=== PATIENT | female | born 1980 | race Caucasian/White ===

== ENCOUNTER 2022-02-16 08:59 | Emergency (ER) | payer OTHER ==
[2022-02-16] MEDS ORDERED: SODIUM CHLORIDE 0.9% 500 ML 500 ML IV STA (09:22)
[2022-02-16] MEDS ORDERED: SODIUM CHLORIDE 0.9% 1,000 ML IV STA (09:22)
[2022-02-16] MEDS ORDERED: ONDANSETRON 4 MG/2 ML VIAL IVP STA (09:22)
[2022-02-16] MEDS ORDERED: HYDROmorphone 0.5 MG/0.5 ML SYRINGE IVP STA ×2 (09:22→13:46)
--- NOTE | 2022-02-16 09:31 | ED ---
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 She states the abdominal pain started on 02/14/22, and has been constant ever since with occasional sharp pains. She rates the pain 01/25 and has been taking Tylenol 3s and using a heating blanket with no relief. She does admit to one episode of vomiting on Tuesday and constant diarrhea. Denies melena, dysuria, fevers, chills, or nightsweats. She under went a cholecystectomy years ago and takes Lasix as needed for leg swelling. Location: [facility] - Related Data Home Medications Medication Instructions Recorded Confirmed Indapamide 2.5 mg PO DAILY 02/16/22 02/16/22 Previous Rx's Medication Instructions Recorded HYDROcodone/APAP 5-325MG [[place]fe 5] 1 each PO Q6HR PRN #12 tab 02/16/22 Allergies Allergy/AdvReac Type Severity Reaction Status Date / Time No Known Allergies Allergy Verified 02/16/22 10:51 Review of Systems ROS Statement: Those systems with pertinent positive or pertinent negative responses have been documented in the HPI. ROS Other: All systems not noted in ROS Statement are negative. Past Medical History Past Medical History: No Reported History History of Any Multi-Drug Resistant Organisms: None Reported Past Surgical History: Cholecystectomy Additional Past Surgical History / Comment(s): Breat reduction. Past Psychological History: No Psychological Hx Reported Smoking Status: Never smoker Past Alcohol Use History: Occasional Past Drug Use History: None Reported General Exam Limitations: no limitations General appearance: alert, in no apparent distress Head exam: Present: atraumatic, normocephalic, normal inspection Eye exam: Present: normal appearance, PERRL, EOMI. Absent: scleral icterus, conjunctival injection, periorbital swelling ENT exam: Present: normal exam, mucous membranes moist Neck exam: Present: normal inspection. Absent: tenderness, meningismus, lymphadenopathy Respiratory exam: Present: normal lung sounds bilaterally. Absent: respiratory distress, wheezes, rales, rhonchi, stridor Cardiovascular Exam: Present: regular rate, normal rhythm, normal heart sounds. Absent: systolic murmur, diastolic murmur, rubs, gallop, clicks GI/Abdominal exam: Present: soft, tenderness (RLQ/RUQ/LUQ tenderness to palpitation), normal bowel sounds Extremities exam: Present: normal inspection, full ROM, normal capillary refill. Absent: tenderness, pedal edema, joint swelling, calf tenderness Back exam: Present: normal inspection Neurological exam: Present: alert, oriented X3, CN II-XII intact Psychiatric exam: Present: normal affect, normal mood Skin exam: Present: warm, dry, intact, normal color. Absent: rash Course Vital Signs 02/16/22 02/16/22 02/16/22 09:03 10:02 12:03 Temperature 98.1 F Pulse Rate 90 103 H Respiratory 20 18 18 Rate Blood Pressure 136/89 133/79 O2 Sat by Pulse 99 100 Oximetry 02/16/22 13:48 Temperature Pulse Rate 96 Respiratory 18 Rate Blood Pressure 138/101 O2 Sat by Pulse 100 Oximetry Medical Decision Making - Medical Decision Making 41 present for right-sided abdominal pain. Patient has abnormal CT showing right ovarian findings. Ultrasound was obtained shows irregular tissue on the right ovary concerning for brain cancer I did contact on-call SENIOR BUSINESS INTELLIGENCE ANALYST as patient does not have current SENIOR BUSINESS INTELLIGENCE ANALYST. Patient's will follow-up within 1 week patient provided pain control and return parameters were discussed. - Lab Data Result diagrams: 02/16/22 10:12 02/16/22 10:12 Lab Results 02/16/22 02/16/22 02/16/22 Range/Units 10:12 10:12 10:12 WBC 10.4 (3.8-10.6) k/uL RBC 4.58 (3.80-5.40) m/uL Hgb 13.8 (11.4-16.0) gm/dL Hct 41.1 (34.0-46.0) % MCV 89.7 (80.0-100.0) fL MCH 30.0 (25.0-35.0) pg MCHC 33.5 (31.0-37.0) g/dL RDW 13.8 (11.5-15.5) % Plt Count 319 (150-450) k/uL MPV 8.8 Neutrophils % 70 % Lymphocytes % 21 % Monocytes % 5 % Eosinophils % 2 % Basophils % 1 % Neutrophils # 7.3 (1.3-7.7) k/uL Lymphocytes # 2.2 (1.0-4.8) k/uL Monocytes # 0.5 (0-1.0) k/uL Eosinophils # 0.2 (0-0.7) k/uL Basophils # 0.1 (0-0.2) k/uL Sodium (137-145) mmol/L Potassium (3.5-5.1) mmol/L Chloride (98-107) mmol/L Carbon Dioxide (22-30) mmol/L Anion Gap mmol/L BUN (7-17) mg/dL Creatinine (0.52-1.04) mg/dL Est GFR (CKD-EPI)AfAm (>60 ml/min/1.73 sqM) Est GFR (CKD-EPI)NonAf (>60 ml/min/1.73 sqM) Glucose (74-99) mg/dL Plasma Lactic Acid Blake (0.7-2.0) mmol/L Calcium (8.4-10.2) mg/dL Total Bilirubin (0.2-1.3) mg/dL AST (14-36) U/L ALT (4-34) U/L Alkaline Phosphatase (38-126) U/L Total Protein (6.3-8.2) g/dL Albumin (3.5-5.0) g/dL Lipase (23-300) U/L Urine Color Yellow Urine Appearance Cloudy H (Clear) Urine pH 7.0 (5.0-8.0) Ur Specific [place] 1.023 (1.001-1.035) Urine Protein Trace H (Negative) Urine Glucose (UA) Negative (Negative) Urine Ketones Negative (Negative) Urine Blood Negative (Negative) Urine Nitrite Negative (Negative) Urine Bilirubin Negative (Negative) Urine Urobilinogen <2.0 (<2.0) mg/dL Ur Leukocyte Esterase Negative (Negative) Urine WBC 2 (0-5) /hpf Ur Squamous Epith Cells 14 H (0-4) /hpf Urine Bacteria Rare H (None) /hpf Urine Mucus Rare H (None) /hpf Urine HCG, Qual Not Detected (Not Detectd) 02/16/22 02/16/22 Range/Units 10:12 10:12 WBC (3.8-10.6) k/uL RBC (3.80-5.40) m/uL Hgb (11.4-16.0) gm/dL Hct (34.0-46.0) % MCV (80.0-100.0) fL MCH (25.0-35.0) pg MCHC (31.0-37.0) g/dL RDW (11.5-15.5) % Plt Count (150-450) k/uL MPV Neutrophils % % Lymphocytes % % Monocytes % % Eosinophils % % Basophils % % Neutrophils # (1.3-7.7) k/uL Lymphocytes # (1.0-4.8) k/uL Monocytes # (0-1.0) k/uL Eosinophils # (0-0.7) k/uL Basophils # (0-0.2) k/uL Sodium 137 (137-145) mmol/L Potassium 4.5 (3.5-5.1) mmol/L Chloride 105 (98-107) mmol/L Carbon Dioxide 25 (22-30) mmol/L Anion Gap 7 mmol/L BUN 12 (7-17) mg/dL Creatinine 0.69 (0.52-1.04) mg/dL Est GFR (CKD-EPI)AfAm >90 (>60 ml/min/1.73 sqM) Est GFR (CKD-EPI)NonAf >90 (>60 ml/min/1.73 sqM) Glucose 84 (74-99) mg/dL Plasma Lactic Acid Blake 0.9 (0.7-2.0) mmol/L Calcium 8.4 (8.4-10.2) mg/dL Total Bilirubin 0.9 (0.2-1.3) mg/dL AST 29 (14-36) U/L ALT 18 (4-34) U/L Alkaline Phosphatase 68 (38-126) U/L Total Protein 6.5 (6.3-8.2) g/dL Albumin 3.8 (3.5-5.0) g/dL Lipase 75 (23-300) U/L Urine Color Urine Appearance (Clear) Urine pH (5.0-8.0) Ur Specific [place] (1.001-1.035) Urine Protein (Negative) Urine Glucose (UA) (Negative) Urine Ketones (Negative) Urine Blood (Negative) Urine Nitrite (Negative) Urine Bilirubin (Negative) Urine Urobilinogen (<2.0) mg/dL Ur Leukocyte Esterase (Negative) Urine WBC (0-5) /hpf Ur Squamous Epith Cells (0-4) /hpf Urine Bacteria (None) /hpf Urine Mucus (None) /hpf Urine HCG, Qual (Not Detectd) Disposition Clinical Impression: Ovarian mass, right, Abdominal pain Disposition: HOME SELF-CARE Condition: Stable Instructions (If sedation given, give patient instructions): Ovarian Cyst (ED) Additional Instructions: Please return to the Emergency Department if symptoms worsen or any other concerns. Prescriptions: HYDROcodone/APAP 5-325MG [[place]ickliffe 5] 1 each PO Q6HR PRN #12 tab PRN Reason: Pain Is patient prescribed a controlled substance at d/c from ED?: Yes When asked, does pt state using other controlled substances?: No If prescribed controlled substance>3 days was MAPS reviewed?: Prescribed <3 Days If opioid is for acute pain is fill amount 7 days or less?: Yes If Rx opioid, was Start Talking consent form obtained?: Yes Referrals: Winston Peterson MD [Primary Care Provider] - 1-2 days Verónica Oakley DO [Doctor of Osteopathic Medicine] - 1-2 days Time of Disposition: 14:46
[2022-02-16 10:05] VITALS: RESP 18
[2022-02-16 10:31] LABS: Basophils # (A) 0.1 k/uL (0-0.2); Basophils % (A) 1 %; Eosinophils # (A) 0.2 k/uL (0-0.7); Eosinophils % (A) 2 %; HCT 41.1 % (34.0-46.0); HGB 13.8 gm/dL (11.4-16.0); Lymphocytes # (A) 2.2 k/uL (1.0-4.8); Lymphocytes % (A) 21 %; MCHC 33.5 g/dL (31.0-37.0); MCV 89.7 fL (80.0-100.0); Mean Platelet Volume 8.8; Monocytes # (A) 0.5 k/uL (0-1.0); Monocytes % (A) 5 %; Neutrophils # (A) 7.3 k/uL (1.3-7.7); Neutrophils % (A) 70 %; Platelet Count 319 k/uL (150-450); RBC 4.58 m/uL (3.80-5.40); RDW 13.8 % (11.5-15.5); WBC 10.4 k/uL (3.8-10.6)
[2022-02-16 10:36] LABS: Appearance,Urine Cloudy (Clear); Bacteria,Urine Rare /hpf; Bilirubin,Urine Negative (Negative); Blood,Urine Negative (Negative); Color,Urine Yellow; Glucose,Urine (UA) Negative (Negative); Ketones,Urine Negative (Negative); Leukocyte Esterase,Urine Negative (Negative); Mucus,Urine Rare /hpf; Nitrite,Urine Negative (Negative); Protein,Urine Trace (Negative); Specific Gravity,Urine 1.023 (1.001-1.035); Squamous Epithelial Cell,Urine 14 /hpf (0-4); Urobilinogen,Urine <2.0 mg/dL (<2.0); WBC,Urine 2 /hpf (0-5)
[2022-02-16 10:56] LABS: ALT 18 U/L (4-34); AST 29 U/L (14-36); African American GFR (CKD) >90 (>60 ml/min/1.73 sqM); Albumin 3.8 g/dL (3.5-5.0); Alkaline Phosphatase 68 U/L (38-126); Anion Gap 7 mmol/L; Blood Urea Nitrogen 12 mg/dL (7-17); Calcium 8.4 mg/dL (8.4-10.2); Carbon Dioxide 25 mmol/L (22-30); Chloride 105 mmol/L (98-107); Glucose 84 mg/dL (74-99); Lipase 75 U/L (23-300); Non-African American GFR(CKD) >90 (>60 ml/min/1.73 sqM); Sodium 137 mmol/L (137-145); Total Bilirubin 0.9 mg/dL (0.2-1.3); Total Protein 6.5 g/dL (6.3-8.2)
[2022-02-16 11:02] LABS: Potassium 4.5 mmol/L (3.5-5.1)
--- NOTE | 2022-02-16 12:19 | CT ---
EXAMINATION TYPE: CT abdomen pelvis w con DATE OF EXAM: 02/16/2022 HISTORY: Abdominal pain not localized, hx marion CT DLP: 1483.2mGycm Automated Exposure Control for Dose Reduction was Utilized. CONTRAST: CT scan of the abdomen and pelvis is performed without oral but with IV Contrast, patient injected wi th 100 mL of Isovue 300. COMPARISON: None. FINDINGS: LUNG BASES: No significant abnormality is appreciated. LIVER/GB: Visualized liver is heterogeneously hypodense suggesting mild diffuse fatty infiltration. C holecystectomy clips are seen. PANCREAS: No significant abnormality is seen. SPLEEN: No significant abnormality is seen. ADRENALS: No significant abnormality is seen. KIDNEYS: There are 2 round left renal calculi measuring near 4 mm in size. There are 3 right renal ca lculi measuring up to 6 mm in size upper pole level coronal image 66. There are symmetric corticomedu llary uptake and excretion without hydronephrosis seen bilaterally. There is 2.0 cm simple appearing thin-walled cyst lower pole right kidney anteriorly delayed axial image 36. There is a subcentimeter lesion presumed benign thin-walled cyst lower pole left kidney coronal image 67. BOWEL: Suboptimal evaluation without enteric contrast. No suspicious small or large bowel dilatation. Appendix appears within normal limits extending medially from the cecum UTERUS/ADNEXA: Anteverted uterus. Left ovary normal in size on axial image 66. Right ovary larger wit h lobulated contour measuring 5.7 x 2.7 cm axial image 69. Mild ill-defined fluid and fat stranding i n the pelvis. LYMPH NODES: No greater than 1cm abdominal or pelvic lymph nodes are appreciated. OSSEOUS STRUCTURES: Mild to moderate disc space narrowing lumbosacral junction. OTHER: No significant additional abnormality is seen. IMPRESSION: Asymmetric enlargement of the right ovary with mild adjacent fluid and fat stranding. Unc ertain of clinical significance given history of nonspecified abdominal pain. Correlate clinically.
--- NOTE | 2022-02-16 13:31 | US ---
EXAMINATION TYPE: US transvaginal DATE OF EXAM: 02/16/2022 COMPARISON: 02/17/2000 CLINICAL HISTORY: pain, abnormal CT. TECHNIQUE: Transvaginal (TV). Transabdominal sonographic images of the pelvis were acquired. Trans vaginal sonographic images were medically necessary to better assess the following anatomy: Date of LMP: 01-30-22 EXAM MEASUREMENTS: Uterus: 6.9 x 3.2 x 3.0 cm Endometrial Stripe: 0.5 cm Right Ovary: see notes below Left Ovary: 2.7 x 1.5 x 1.4 cm 1. Uterus: Anteverted 2. Endometrium: wnl 3. Right Ovary: in right adnexa there is a heterogeneous oval structure that may be right ovary, chemo suring 5.2 x 2.2 x 3.0cm, no normal appearing ovarian tissue 4. Left Ovary: wnl adjacent free fluid Spectral, color and waveform doppler imaging shows good arterial and venous flow within the ovaries ; there is no evidence for ovarian torsion. 5. Bilateral Adnexa: wnl 6. Posterior cul-de-sac: wnl Nabothian cyst suggested. IMPRESSION: 1. Findings are suggestive of a right adnexal mass measuring 5.2 cm. Technologist noted that she coul d not definitively see normal-appearing ovarian tissue. Differential diagnosis would include neoplasm s of the right ovary. Correlate clinically with beta hCG to exclude other etiologies including ectopi c . Consider follow-up MRI
[2022-02-16 15:17] VITALS: BP 134/92; PULSE 83; TEMP 98.2
== END 2022-02-16 15:16 | disposition home or self-care (01) ==
LOC: EC 08:59
DX: N83.291 Other ovarian cyst, right side (principal)
CPT/HCPCS: 36415; 80053; 83605; 83690; 85025; 81001; 81025; 76830; 74177; 99284; 96374; 96375 ×2; 96361; J2405; J1170; Q9967

== ENCOUNTER 2022-03-10 06:18 | Day surgery (SDC) | payer OTHER ==
[2022-03-05 12:45] VITALS: BMI 41.0
--- NOTE | 2022-03-09 12:51 | P.HPOB ---
History of Present Illness H&P Date: 03/09/22 Chief Complaint: pelvic pain 41 year old G0 presents for diagnostic laparoscopy, aspiration of right ovarian cyst with da crystal, possible laparotomy, possible RSO. Past Medical History Past Medical History: No Reported History Additional Past Medical History / Comment(s): OVARIAN CYST History of Any Multi-Drug Resistant Organisms: None Reported Past Surgical History: Breast Surgery, Cholecystectomy Additional Past Surgical History / Comment(s): Breast reduction. LEEP Past Anesthesia/Blood Transfusion Reactions: No Reported Reaction Smoking Status: Never smoker - Past Family History Mother Family Medical History: No Reported History Medications and Allergies Home Medications Medication Instructions Recorded Confirmed Type Ondansetron [Zofran] 4 mg PO Q8HR PRN 03/05/22 03/05/22 History oxyCODONE ER [OxyCONTIN] 10 mg PO Q12HR PRN 03/05/22 03/05/22 History Allergies Allergy/AdvReac Type Severity Reaction Status Date / Time No Known Allergies Allergy Verified 03/05/22 12:33 Exam Osteopathic Statement: *. No significant issues noted on an osteopathic structural exam other than those noted in the History and Physical/Consult. HEArt: RRR Lungs: CTAB Abdomen: soft, nontender Extremeties: neg davis's Assessment and Plan (1) Ovarian mass, right Narrative/Plan: normal CA-125 Status: Acute Code(s): N83.8 - OTH NONINFLAMMATORY DISORD OF OVARY, FALLOP AND BROAD LIGMT SNOMED Code(s): 35702524433663840 (2) Pelvic pain Status: Acute Code(s): R10.2 - PELVIC AND PERINEAL PAIN SNOMED Code(s): 70365354 Plan: 1. diagnostic laparoscopy with da crystal, aspiration of right ovarian cyst, possible laparotomy, possible RSO
[~2022-03-10 06:18] MED LIST: Pre Op ABX Message 1 EACH MISC MISCELLANE ONE
[2022-03-10] MEDS ORDERED: SCOPOLAMINE 1 MG/72 HR PATCH TRANSDERM ONE (06:46)
[2022-03-10] MEDS ORDERED: MIDAZOLAM 2 MG/2 ML VIAL IV PRN (06:46)
[2022-03-10] MEDS ORDERED: ONDANSETRON 4 MG/2 ML VIAL IVP ONE (06:46)
[2022-03-10] MEDS ORDERED: LACTATED RINGERS 1,000 ML IV SCH (06:46)
[2022-03-10] MEDS ORDERED: DEXAMETHASONE SOD PHOSPHATE 4 MG/ML 1 ML VIAL IV ONE (06:46)
[2022-03-10] MEDS ORDERED: LACTATED RINGERS 1,000 ML IV ONE ×2 (07:00→09:00)
[2022-03-10] MEDS ORDERED: LIDOCAINE 1% (10MG/ML) FOR IV START INTRADERMA ONE (07:00)
[2022-03-10] MEDS ORDERED: PROPOFOL 10 MG/ML 20 ML VIAL IV ONE (08:00)
[2022-03-10] MEDS ORDERED: ROCURONIUM 10 MG/ML (5 ML VIAL) IV ONE (08:00)
[2022-03-10] MEDS ORDERED: GLYCOPYRROLATE 0.2 MG/ML 2 ML VIAL ONE (08:00)
[2022-03-10] MEDS ORDERED: KETOROLAC 15 MG/ML 1 ML VIAL ONE (08:00)
[2022-03-10] MEDS ORDERED: MIDAZOLAM 2 MG/2 ML VIAL ONE (08:00)
[2022-03-10] MEDS ORDERED: LIDOCAINE 4% LTA KIT (4 ML) TOPICAL ONE (08:00)
[2022-03-10] MEDS ORDERED: SUCCINYLCHOLINE CHLORIDE 200 MG/10 ML VIAL IV ONE (08:00)
[2022-03-10] MEDS ORDERED: fentaNYL (PF) 50 MCG/ML 2 ML AMP ONE (08:00)
[2022-03-10] MEDS ORDERED: LIDOCAINE 2% INJ 20 MG/ML (2 ML VIAL) ONE (08:00)
[2022-03-10] MEDS ORDERED: NEOSTIGMINE 1 MG/ML 10 ML VIAL ONE (08:00)
[2022-03-10] MEDS ORDERED: SODIUM CHLORIDE 0.9% 50 ML with ceFAZolin 2,000 MG IV ONE ×2 (08:05)
[2022-03-10] MEDS ORDERED: BUPIVACAINE (PF) 0.25% 30 ML VIAL SQ ONE ×2 (08:41→08:58)
[2022-03-10 09:15] VITALS: TEMP 97
[2022-03-10 09:26] VITALS: RESP 16
--- NOTE | 2022-03-10 09:28 | P.OP ---
Date of Procedure: 03/10/22 Preoperative Diagnosis: 1. Pelvic pain 2. Right ovarian cyst Postoperative Diagnosis: 1. Pelvic pain 2. Ovarian cyst: 1 follicular cyst and 1 endometrioma 3. Ovarian adhesions to the bowel Procedure(s) Performed: diagnostic laparoscopy using da Howard with right oophorectomy and lysis of adhesions Anesthesia: CLARE Surgeon: Verónica Oakley Estimated Blood Loss (ml): 3 IV fluids (ml): 400 Urine output (ml): 45 Pathology: other (Right ovary and cyst) Condition: stable Disposition: PACU Operative Findings: right ovarian cyst times to 1 was an endometrioma, adhesions to the bowel and the right adnexa. Description of Procedure: Patient taken the operating room where general anesthesia was obtained without difficulty. She is prepped and draped in normal sterile fashion dorsal lithotomy position, legs placed in the Murali stirrups. Weighted speculum placed in the vagina and the anterior lip the cervix was grasped with single-tooth tenaculum. The uterus sounded to 6 cm and the kroner manipulator was then placed in the uterus. Schumacher catheter was used to drain the bladder. Attention was then turned to the abdomen and gloves were changed. A 5 mm supraumbilical incision was made the scalpel and a 5 mm optical trocar was placed under direct visualization. 10 cm to the right of this and 2 cm down a 5 mm incision was made and 8 mm da Howard port was placed under direct visualization. Same measurements on the opposite side of the patient's abdomen, the 5 mm incision was made and 8 mm da Howard port was placed under direct visualization. In the left upper quadrant a 10 mm incision was made and a 10 mm optical trocar was placed under direct visualization. The 5 mm optical trocar was then replaced with the 8 mm da Howard camera port. The robot was docked on patient's right side. The camera was introduced and then the monopolar curved scissor and [place] bipolar placed under direct visualization. I broke scrub and went to the physician console. survey pelvis revealed normal uterus and normal left adnexa. the right adnexa is adhesed to the right ovarian fossa and the rectum. This was easily peeled away 2 cysts were noted on the right ovary 1 endometrioma and 1 functional cyst with serous fluid. The cysts were removed using the monopolar curved scissors. There was bleeding from the ovary and it did appear that this ovary would likely just reactive here to the rectum and ovarian fossa. The right ovary was then removed by cauterizing and cutting the infundibulopelvic ligament beneath the ovary and then the uterine ovarian ligament. The ovary was removed through the assistant professor of philosophy port. Excellent hemostasis was assured. All instruments were removed from the pelvis and abdomen. The abdominal incisions were closed with 4-0 Vicryl in a subcuticular fashion. Patient tolerated the procedure well, sponge and instrument counts correct 2 and she was taken to recovery room in stable condition condition
[2022-03-10] MEDS: HYDROmorphone 0.5 MG/0.5 ML SYRINGE IVP PRN ×3 (09:30→09:55)
[2022-03-10] MEDS ORDERED: HYDROcodone/APAP 7.5-325MG 1 EACH TAB PO ONE (10:32)
[2022-03-10] MEDS ORDERED: HYDROcodone/APAP 7.5-325MG 1 EACH TAB ONE (10:33)
[2022-03-10 10:59] VITALS: BP 111/73; PULSE 79
== END 2022-03-10 11:05 | disposition home or self-care (01) ==
LOC: OR 06:18
PROVIDERS: ATTEND Obstetrics & Gynecology
DX: N83.201 Unspecified ovarian cyst, right side (principal); N80.101 Endometriosis of right ovary, unspecified depth; N83.01 Follicular cyst of right ovary; Z90.49 Acquired absence of other specified parts of digestive tract; Z98.890 Other specified postprocedural states; Z79.899 Other long term (current) drug therapy
CPT/HCPCS: 81025; 88305; 58662; 58661; J2250; J0330; J1100; J2710; J2405; J0690; J3010; J1885; J2704; J1170; J2001

== ENCOUNTER → 2023-01-20 | Outpatient (CLI) | payer BC ==
--- NOTE | 2023-01-20 15:52 | P.PN ---
Subjective Progress Note Date: 01/20/23 Principal diagnosis: right breast recurrent breast abcesses Abscess right breast Subha is a 42-year-old female who was admitted from the emergency room on 01-12-23 with a complaint of erythema/possible cellulitis/possible abscess right breast. She states that the area of swelling started several days prior. She has had multiple breast abscesses in the past. She has had at least 5 abscesses in the left breast and this is her second abscess in the right breast. The patient in the past has been treated at [facility]. She did have bilateral breast reduction approximately 10 years ago and there is some question as to whether the abscesses started following the reduction. She is uncertain as to what the organisms are however she has been told they were anaerobes. The patient received IV Zosyn and vancomycin at this time decreased erythema and discomfort in her right breast. She is now on doxycycline and ceftin. Is not complaining of any fever or chills. 12-13-22 bilateral mammogram at [facility] [place]; left breaset ultrasound on 12-22-22 mixed lesion measuring 5 x 4 mm without internal vascularity [place] to be BIRADS 3 follow-up bilateral diagnostic mammograms in 6 months secondary to: 1. Superficial calcifications along inferior aspect of the right breast 2. Vague nodular gritty posterior inferior left breast and 3. 12:00 left-sided 7 mm nodularity possibly debris-filled cyst on ultrasound Six-month follow-up targeted left breast ultrasound Right breast ultrasound performed 31052 1.8 cm hypoechoic area in the subcutaneous tissue corresponding to redness on the skin possible abscess felt to be BIRADS 3 screening mammogram of both breast in 1 year recommend Caffeine: Coffee every morning Nicotine: Negative Chocolate: Occasional controls: Stopped 6 years ago use them intermittently for 10 years prior Family history: Negative for cancer Hormonal history: Menarche: 15 G1 M1 Periods are regular she did have a right nephrectomy in the past Past surgical history: Right nephrectomy Cholecystectomy Past medical history: Breast abscesses Social history: Nicotine: Negative she is exposed to secondhand smoke Alcohol: Occasional Drugs: Negative - Constitutional Constitutional: Denies chills, Denies fever - EENT Eyes: denies blurred vision, denies pain Ears: deny: decreased hearing, tinnitus Ears, nose, mouth and throat: Denies headache, Denies sore throat - Breasts Breasts: bilateral: as per HPI - Cardiovascular Cardiovascular: Denies chest pain, Denies shortness of breath - Respiratory Respiratory: Denies cough, Denies 7 - Gastrointestinal Gastrointestinal: Denies abdominal pain, Denies diarrhea, Denies nausea, Denies vomiting - Genitourinary (Female) Genitourinary: Denies dysuria, Denies hematuria - Menstruation Comment: Right oophrectomy Menstruation: Reports as per HPI - Genitourinary (Male) Genitourinary: Denies dysuria, Denies hematuria - Musculoskeletal Musculoskeletal: Denies myalgias - Integumentary Integumentary: Reports as per HPI - Psychiatric Psychiatric: Reports depression, Denies anxiety - Hematologic/Lymphatic Comment: none - Allergic/Immunologic Allergic/Immunologic: Reports as per HPI Past Medical History Past Medical History: No Reported History Additional Past Medical History / Comment(s): OVARIAN CYST History of Any Multi-Drug Resistant Organisms: None Reported Past Surgical History: Breast Surgery, Cholecystectomy Additional Past Surgical History / Comment(s): Breast reduction. LEEP Past Anesthesia/Blood Transfusion Reactions: No Reported Reaction Past Psychological History: No Psychological Hx Reported Smoking Status: Never smoker Past Alcohol Use History: Occasional Past Drug Use History: None Reported - Past Family History Mother Family Medical History: No Reported History Medications and Allergies Home Medications Medication Instructions Recorded Confirmed Type Indapamide [Lozol] 2.5 mg PO DAILY 01/12/23 01/12/23 History buPROPion HCL [buPROPion HCL XL] 300 mg PO DAILY 01/12/23 01/12/23 History Acetaminophen Tab [Tylenol] 500 mg PO Q6HR PRN tab 01/13/23 Rx Doxycycline [Vibramycin] 100 mg PO BID 1 Days #14 capsule 01/13/23 Rx cefUROXime axetiL [Ceftin] 500 mg PO BID #14 tab 01/13/23 Rx Allergies Allergy/AdvReac Type Severity Reaction Status Date / Time No Known Allergies Allergy Verified 01/12/23 17:08 Objective - Constitutional General appearance: Present: cooperative - EENT Eyes: Present: EOMI ENT: Present: hearing grossly normal - Neck Neck: Present: normal ROM - Respiratory Respiratory: bilateral: CTA - Cardiovascular Rhythm: regular Heart sounds: normal: S1, S2 - Gastrointestinal General gastrointestinal: Present: soft - Integumentary Integumentary: Present: normal turgor - Musculoskeletal Musculoskeletal: Present: gait normal - Psychiatric Psychiatric: Present: A&O x's 3, appropriate affect, intact judgment & insight - Additional findings Additional findings: Breast examination: Inspection: Bilateral reduction mammoplasty incisions, right breast outer lower aspect erythema has resolved Palpation: Right breast: Multi-positional exam no dominant masses or nodules of concern, in the lower outer area of prior abscess has resolved Right axilla: No adenopathy of concern Left breast: Multi-positional exam no dominant masses or nodules of concern Left axilla: No adenopathy of concern Assessment and Plan Assessment: Impression: Recurrent breast abscesses BMI 41.8 Plan: Obtain cultures from [facility] Obtain mammogram from [facility]; done bilateral mammogram in 6 months, bilateral breat ultrasound in 6 moths Continue antibiotics as per primary care Consider ID consult At this time there is nothing which would warrant surgical drainage follow up in 6 months or sooner if any questions Cc: Dr. Song, Ebony Matthew
[2023-01-20 16:13] VITALS: BP 137/94; PULSE 114; RESP 18; TEMP 98.1
== END ==
LOC: WWCWWP 15:30
PROVIDERS: ATTEND Surgery
DX: N63.25 Unspecified lump in the left breast, overlapping quadrants (principal)

== ENCOUNTER 2023-03-29 20:21 | Emergency (ER) | payer BC ==
[2023-03-29 21:03] VITALS: BP 151/87; PULSE 81; RESP 18; TEMP 98.1
--- NOTE | 2023-03-29 21:15 | ED ---
Abdominal Pain HPI - General Source: patient Mode of arrival: ambulatory Limitations: no limitations <Maurizio Pinto - Last Filed: 03/29/23 21:16> <Dm Glover - Last Filed: 03/30/23 03:31> - General Chief Complaint: Abdominal Pain Stated Complaint: NVD Time Seen by Provider: 03/29/23 21:11 - History of Present Illness Initial Comments: 42-year-old female resents to the ED with a chief complaint of diarrhea. Patient notes recent admission to hospital and treatment with IV antibiotics. Patient states for the past month has had diarrhea which has been worsening since onset. Also states for the past 5 days has had intermittent pain of the right flank. No urinary symptoms. Onset of nausea today. (Maurizio Pinto) A 42-year-old female presenting with chief complaint of diarrhea. Patient states that she has had recent IV and oral antibiotics for recurrent breast infection. She states that while this infection has been doing well, she has been having frequent diarrhea for the last week. She follows with infectious disease, she attempted to leave a sample for C. diff testing, however they were unable to process her sample due to consistency. Patient is concerned she is dehydrated. She states that she gets intermittent flank pain. She also admits to nausea. No fevers or chills. No chest pain or difficulty breathing. (Dm Glover) - Related Data Home Medications Medication Instructions Recorded Confirmed Indapamide [Lozol] 2.5 mg PO DAILY 01/12/23 01/20/23 buPROPion HCL [buPROPion HCL XL] 300 mg PO DAILY 01/12/23 01/20/23 Previous Rx's Medication Instructions Recorded Acetaminophen Tab [Tylenol] 500 mg PO Q6HR PRN tab 01/13/23 Doxycycline [Vibramycin] 100 mg PO BID 1 Days #14 capsule 01/13/23 cefUROXime axetiL [Ceftin] 500 mg PO BID #14 tab 01/13/23 Allergies Allergy/AdvReac Type Severity Reaction Status Date / Time No Known Allergies Allergy Verified 03/29/23 20:43 Review of Systems ROS Other: All systems not noted in ROS Statement are negative. <Maurizio Pinto - Last Filed: 03/29/23 21:16> ROS Other: All systems not noted in ROS Statement are negative. <Dm Glover - Last Filed: 03/30/23 03:31> ROS Statement: Those systems with pertinent positive or pertinent negative responses have been documented in the HPI. Past Medical History Past Medical History: No Reported History Additional Past Medical History / Comment(s): OVARIAN CYST History of Any Multi-Drug Resistant Organisms: None Reported Past Surgical History: Breast Surgery, Cholecystectomy Additional Past Surgical History / Comment(s): Breast reduction. LEEP Past Anesthesia/Blood Transfusion Reactions: No Reported Reaction Past Psychological History: No Psychological Hx Reported Smoking Status: Never smoker Past Alcohol Use History: Occasional Past Drug Use History: None Reported - Past Family History Mother Family Medical History: No Reported History <Maurizio Pinto - Last Filed: 03/29/23 21:16> General Exam Limitations: no limitations <Maurizio Pinto - Last Filed: 03/29/23 21:16> General appearance: alert, in no apparent distress Head exam: Present: atraumatic Eye exam: Present: normal appearance, EOMI Neck exam: Present: normal inspection Respiratory exam: Absent: respiratory distress Cardiovascular Exam: Present: regular rate GI/Abdominal exam: Absent: distended Extremities exam: Present: normal inspection Neurological exam: Present: alert, oriented X3 Psychiatric exam: Present: normal affect, normal mood <Dm Glover - Last Filed: 03/30/23 03:31> - General Exam Comments Initial Comments: Visual Physical Exam Vital signs reviewed General: Well-appearing, nontoxic, no acute distress. Head: Normocephalic, atraumatic Eyes: PERRLA, EOMI ENT: Airway patent Chest: Nonlabored breathing Skin: No visual rash, normal skin tone Neuro: Alert and oriented 3 Musculoskeletal: No gross abnormalities (Maurizio Pinto) Course Vital Signs 03/29/23 20:36 Temperature 98.1 F Pulse Rate 81 Respiratory 18 Rate Blood Pressure 151/87 O2 Sat by Pulse 100 Oximetry Medical Decision Making <Maurizio Pinto - Last Filed: 03/29/23 21:16> - Lab Data Result diagrams: 03/29/23 21:45 03/29/23 21:45 <Dm Glover - Last Filed: 03/30/23 03:31> - Medical Decision Making Quicknote portion performed. Signed Maurizio Pinto PA-C (Maurizio Pinto) Was pt. sent in by a medical professional or institution (TAMMI Pérez, WRAPPING MACHINE HELPER, urgent care, hospital, or intermediate...) When possible be specific @ -No Did you speak to anyone other than the patient for history (EMS, parent, family, police, friend...)? What history was obtained from this source @ -No Did you review nursing and triage notes (agree or disagree)? Why? @ -I reviewed and agree with nursing and triage notes Were old charts reviewed (outside hosp., previous admission, EMS record, old EKG, old radiological studies, urgent care reports/EKG's, intermediate records)? Report findings @ -No old charts were reviewed Differential Diagnosis (chest pain, altered mental status, abdominal pain women, abdominal pain men, vaginal bleeding, weakness, fever, dyspnea, syncope, headache, dizziness, GI bleed, back pain, seizure, CVA, palpatations, mental health, musculoskeletal)? @ -Differential includes gastroenteritis, C. diff colitis, diverticulitis, this is not an all inclusive list EKG interpreted by me (3pts min.). @ -As above X-rays interpreted by me (1pt min.). @ -None done CT interpreted by me (1pt min.). @ -Nonobstructing bilateral renal calculi. No ureteral calculi U/S interpreted by me (1pt. min.). @ -None done What testing was considered but not performed or refused? (CT, X-rays, U/S, labs)? Why? @ -Stool culture was ordered, patient was unable to provide a stool sample throughout her ER course What meds were considered but not given or refused? Why? @ -None Did you discuss the management of the patient with other professionals (professionals i.e. TAMMI Pérez, WRAPPING MACHINE HELPER, lab, RT, psych nurse, social sciences research scientist, analytical clerk, teacher, licensing officer, dependency case manager)? Give summary @ -No Was smoking cessation discussed for >3mins.? @ -No Was critical care preformed (if so, how long)? @ -No Were there social determinants of health that impacted care today? How? (Homelessness, low income, unemployed, alcoholism, drug addiction, transportation, low edu. Level, literacy, decrease access to med. care, [facility], rehab)? @ -No Was there de-escalation of care discussed even if they declined (Discuss DNR or withdrawal of care, Hospice)? DNR status @ -No What co-morbidities impacted this encounter? (DM, HTN, Smoking, COPD, CAD, Cancer, CVA, ARF, Chemo, Hep., AIDS, mental health diagnosis, sleep apnea, morbid obesity)? @ -None Was patient admitted / discharged? Hospital course, mention meds given and route, prescriptions, significant lab abnormalities, going to OR and other pertinent info. @ -42-year-old female presenting with chief complaint of diarrhea and intermittent flank pain. Patient states that she is currently on antibiotics for a recurrent breast infection, she has no complaints regarding this infection at this time. History and physical examination are conducted. WBC 11.5, likely due to patient's current breast infection for which she is being treated with antibiotics by her infectious disease specialist. Glucose 69, glucose on recheck is 84. Urine shows no bleeding or infectious process. Negative hCG. CT shows bilateral nonobstructing stones. Patient throughout the course of her ER visit was unable to provide a stool sample. Patient is educated on today's findings. Follow-up with PCP. Report back to ER with any new or worsening symptoms. Discussed return parameters and answered all questions. Patient conveyed verbal understanding and agreed to the plan. I discussed this case in detail with my attending Dr. Merritt Undiagnosed new problem with uncertain prognosis? @ -No Drug Therapy requiring intensive monitoring for toxicity (Heparin, Nitro, Insulin, Cardizem)? @ -No Were any procedures done? @ -No Diagnosis/symptom? @ -Diarrhea Acute, or Chronic, or Acute on Chronic? @ -Acute Uncomplicated (without systemic symptoms) or Complicated (systemic symptoms)? @ -Uncomplicated Side effects of treatment? @ -No Exacerbation, Progression, or Severe Exacerbation? @ -No (Dm Glover) - Lab Data Lab Results 03/29/23 03/29/23 03/29/23 Range/Units 21:45 21:45 21:45 WBC 11.5 H (3.8-10.6) k/uL RBC 5.06 (3.80-5.40) m/uL Hgb 15.1 (11.4-16.0) gm/dL Hct 44.9 (34.0-46.0) % MCV 88.8 (80.0-100.0) fL MCH 29.9 (25.0-35.0) pg MCHC 33.7 (31.0-37.0) g/dL RDW 14.0 (11.5-15.5) % Plt Count 281 (150-450) k/uL MPV 8.5 Neutrophils % 60 % Lymphocytes % 32 % Monocytes % 5 % Eosinophils % 2 % Basophils % 1 % Neutrophils # 7.0 (1.3-7.7) k/uL Lymphocytes # 3.6 (1.0-4.8) k/uL Monocytes # 0.5 (0-1.0) k/uL Eosinophils # 0.2 (0-0.7) k/uL Basophils # 0.1 (0-0.2) k/uL Sodium (137-145) mmol/L Potassium (3.5-5.1) mmol/L Chloride (98-107) mmol/L Carbon Dioxide (22-30) mmol/L Anion Gap mmol/L BUN (7-17) mg/dL Creatinine (0.52-1.04) mg/dL Est GFR (CKD-EPI)AfAm (>60 ml/min/1.73 sqM) Est GFR (CKD-EPI)NonAf (>60 ml/min/1.73 sqM) Glucose (74-99) mg/dL POC Glucose (mg/dL) (70-110) mg/dL POC Glu Edger Tailer ID Plasma Lactic Acid Blake (0.7-2.0) mmol/L Calcium (8.4-10.2) mg/dL Total Bilirubin (0.2-1.3) mg/dL AST (14-36) U/L ALT (4-34) U/L Alkaline Phosphatase (38-126) U/L Total Protein (6.3-8.2) g/dL Albumin (3.5-5.0) g/dL Amylase (30-110) U/L Lipase (23-300) U/L Urine Color Yellow Urine Appearance Clear (Clear) Urine pH 5.0 (5.0-8.0) Ur Specific [place] 1.035 (1.001-1.035) Urine Protein Negative (Negative) Urine Glucose (UA) Negative (Negative) Urine Ketones Trace H (Negative) Urine Blood Negative (Negative) Urine Nitrite Negative (Negative) Urine Bilirubin Negative (Negative) Urine Urobilinogen 0.2 (<2.0) mg/dL Ur Leukocyte Esterase Negative (Negative) Urine HCG, Qual Not Detected (Not Detectd) 03/29/23 03/29/23 03/30/23 Range/Units 21:45 21:45 01:42 WBC (3.8-10.6) k/uL RBC (3.80-5.40) m/uL Hgb (11.4-16.0) gm/dL Hct (34.0-46.0) % MCV (80.0-100.0) fL MCH (25.0-35.0) pg MCHC (31.0-37.0) g/dL RDW (11.5-15.5) % Plt Count (150-450) k/uL MPV Neutrophils % % Lymphocytes % % Monocytes % % Eosinophils % % Basophils % % Neutrophils # (1.3-7.7) k/uL Lymphocytes # (1.0-4.8) k/uL Monocytes # (0-1.0) k/uL Eosinophils # (0-0.7) k/uL Basophils # (0-0.2) k/uL Sodium 140 (137-145) mmol/L Potassium 4.4 (3.5-5.1) mmol/L Chloride 104 (98-107) mmol/L Carbon Dioxide 23 (22-30) mmol/L Anion Gap 13 mmol/L BUN 13 (7-17) mg/dL Creatinine 0.80 (0.52-1.04) mg/dL Est GFR (CKD-EPI)AfAm >90 (>60 ml/min/1.73 sqM) Est GFR (CKD-EPI)NonAf >90 (>60 ml/min/1.73 sqM) Glucose 69 L (74-99) mg/dL POC Glucose (mg/dL) 84 (70-110) mg/dL POC Glu Edger Tailer ID Faraz Nix Plasma Lactic Acid Blake 1.7 (0.7-2.0) mmol/L Calcium 9.7 (8.4-10.2) mg/dL Total Bilirubin 0.4 (0.2-1.3) mg/dL AST 30 (14-36) U/L ALT 27 (4-34) U/L Alkaline Phosphatase 83 (38-126) U/L Total Protein 7.5 (6.3-8.2) g/dL Albumin 4.5 (3.5-5.0) g/dL Amylase 79 (30-110) U/L Lipase 131 (23-300) U/L Urine Color Urine Appearance (Clear) Urine pH (5.0-8.0) Ur Specific [place] (1.001-1.035) Urine Protein (Negative) Urine Glucose (UA) (Negative) Urine Ketones (Negative) Urine Blood (Negative) Urine Nitrite (Negative) Urine Bilirubin (Negative) Urine Urobilinogen (<2.0) mg/dL Ur Leukocyte Esterase (Negative) Urine HCG, Qual (Not Detectd) Disposition <Maurizio Pinto - Last Filed: 03/29/23 21:16> Is patient prescribed a controlled substance at d/c from ED?: No Time of Disposition: 01:22 <Dm Glover - Last Filed: 03/30/23 03:31> Clinical Impression: Diarrhea Disposition: HOME SELF-CARE Condition: Fair Instructions (If sedation given, give patient instructions): Acute Diarrhea (ED) Additional Instructions: Follow-up with PCP. Report back to ER with any new or worsening symptoms. Referrals: Winston Peterson MD [Primary Care Provider] - 1-2 days
[2023-03-29 22:34] LABS: Basophils # (A) 0.1 k/uL (0-0.2); Basophils % (A) 1 %; Eosinophils # (A) 0.2 k/uL (0-0.7); Eosinophils % (A) 2 %; HCT 44.9 % (34.0-46.0); HGB 15.1 gm/dL (11.4-16.0); Lymphocytes # (A) 3.6 k/uL (1.0-4.8); Lymphocytes % (A) 32 %; MCH 29.9 pg (25.0-35.0); MCHC 33.7 g/dL (31.0-37.0); MCV 88.8 fL (80.0-100.0); Mean Platelet Volume 8.5; Monocytes # (A) 0.5 k/uL (0-1.0); Monocytes % (A) 5 %; Neutrophils % (A) 60 %; Platelet Count 281 k/uL (150-450); RBC 5.06 m/uL (3.80-5.40); WBC 11.5 k/uL (3.8-10.6)
[2023-03-29 22:49] LABS: ALT 27 U/L (4-34); AST 30 U/L (14-36); African American GFR (CKD) >90 (>60 ml/min/1.73 sqM); Albumin 4.5 g/dL (3.5-5.0); Alkaline Phosphatase 83 U/L (38-126); Amylase 79 U/L (30-110); Anion Gap 13 mmol/L; Blood Urea Nitrogen 13 mg/dL (7-17); Calcium 9.7 mg/dL (8.4-10.2); Carbon Dioxide 23 mmol/L (22-30); Chloride 104 mmol/L (98-107); Glucose 69 mg/dL (74-99); Lipase 131 U/L (23-300); Non-African American GFR(CKD) >90 (>60 ml/min/1.73 sqM); Potassium 4.4 mmol/L (3.5-5.1); Sodium 140 mmol/L (137-145); Total Protein 7.5 g/dL (6.3-8.2)
[2023-03-29 22:50] LABS: Total Bilirubin 0.4 mg/dL (0.2-1.3)
[2023-03-29 23:22] LABS: Appearance,Urine Clear (Clear); Bilirubin,Urine Negative (Negative); Blood,Urine Negative (Negative); Color,Urine Yellow; Glucose,Urine (UA) Negative (Negative); Ketones,Urine Trace (Negative); Leukocyte Esterase,Urine Negative (Negative); Nitrite,Urine Negative (Negative); Protein,Urine Negative (Negative); Specific Gravity,Urine 1.035 (1.001-1.035); Urobilinogen,Urine 0.2 mg/dL (<2.0)
--- NOTE | 2023-03-30 00:04 | CT ---
EXAM: CT Abdomen and Pelvis Without Intravenous Contrast CLINICAL HISTORY: ITS.REASON CT Reason: R flank pain TECHNIQUE: Axial computed tomography images of the abdomen and pelvis without intravenous contrast. CTDI is 19.4 mGy and DLP is 1077.4 mGy-cm. This CT exam was performed using one or more of the following dose reduction techniques: automated exposure control, adjustment of the mA and/or kV according to patient size, and/or use of iterative reconstruction technique. COMPARISON: CT abdomen and pelvis 02/16/2022. FINDINGS: Lung bases: Unremarkable. No mass. No consolidation. ABDOMEN: Liver: Unremarkable. Gallbladder and bile ducts: Cholecystectomy. No ductal dilation. Pancreas: Unremarkable. No ductal dilation. Spleen: Unremarkable. No splenomegaly. Adrenals: Unremarkable. No mass. Kidneys and ureters: Nonobstructing bilateral renal calculi. Stomach and bowel: Unremarkable. No obstruction. No mucosal thickening. PELVIS: Appendix: No findings to suggest acute appendicitis. Bladder: Unremarkable. No stones. Reproductive: Unremarkable as visualized. ABDOMEN and PELVIS: Intraperitoneal space: Small amount of free fluid in the pelvis. No free air. Bones/joints: Mild degenerative change spine. No acute fracture. No dislocation. Soft tissues: Unremarkable. Vasculature: Unremarkable. No abdominal aortic aneurysm. Lymph nodes: Unremarkable. No enlarged lymph nodes. IMPRESSION: Nonobstructing bilateral renal calculi. No ureteral calculi.
[2023-03-30 01:43] LABS: Glucose,Whole Blood 84 mg/dL (70-110)
== END 2023-03-30 02:13 | disposition home or self-care (01) ==
LOC: EC 20:21
DX: R19.7 Diarrhea, unspecified (principal); Z90.49 Acquired absence of other specified parts of digestive tract
CPT/HCPCS: 36415; 74176; 80053; 81003; 81025; 82150; 83605; 83690; 85025; 99284

== ENCOUNTER → 2023-07-22 | Outpatient (CLI) | payer BC ==
--- NOTE | 2023-07-22 11:51 | USB ---
Reason for Exam: Follow-up at short interval from prior study. Patient History: 2013, Bilateral Reduction. 2022, US biopsy breast VAD LT - 2 on the Left side. Risk Values: Diana 5 year model risk: 0.6%. NCI Lifetime model risk: 8.2%. Technique: Method: Targeted. Findings: The upper section of the breast of the left breast, the axilla of the left breast and the retroareolar of the left breast were scanned. Left breast at the 12:00 position demonstrates vague 4 x 3 mm hypoechoic area which continues to diminish in size from prior study. No solid mass is seen.. Overall Assessment: Benign, BI-RAD 2 Management: Screening Mammogram of both breasts in 1 year. A clinical breast exam by your physician is recommended on an annual basis and results should be correlated with mammographic findings. This exam should not preclude additional follow-up of suspicious palpable abnormalities. Results were given to the patient verbally at the time of exam. Electronically signed and approved by: Sohail Blanco M.D. Radiologis
--- NOTE | 2023-07-22 14:21 | MM ---
Reason for Exam: Follow-up at short interval from prior study. Patient History: Menarche at age 15. Patient has no children. Right ovary removed at age 40. 2013, Bilateral Reduction. 2022, US biopsy breast VAD LT - 2 on the Left side. Risk Values: Diana 5 year model risk: 1.0%. NCI Lifetime model risk: 13.5%. Tissue Density: There are scattered areas of fibroglandular density. Findings: Analyzed By CAD. Vague nodular density persists left breast 4 cm from the nipple at the 12:00 position. Ultrasound is recommended. Overall Assessment: Incomplete: need additional imaging evaluation, BI-RAD 0 Management: Diagnostic Breast Ultrasound of the left breast. Results were given to the patient verbally at the time of exam. Patient should continue monthly self-breast exams. A clinical breast exam by your physician is recommended on an annual basis. This exam should not preclude additional follow-up of suspicious palpable abnormalities. Note on Diana scores and lifetime risk: 1. A Diana score greater than 3% is considered moderate risk. If this is the case, consider specialist referral to assess eligibility for a risk reducing agent. 2. If overall lifetime risk for the development of breast cancer is 20% or higher, the patient may qualify for future screening with alternating mammogram and breast MRI. Electronically signed and approved by: Sohail Blanco M.D. Radiologis
== END | disposition home or self-care (01) ==
LOC: RADMAMWWP 10:54
PROVIDERS: ATTEND Surgery
DX: R92.323 Mammographic fibroglandular density, bilateral breasts (principal)
CPT/HCPCS: 77062; 77066

== ENCOUNTER → 2023-07-28 | Outpatient (CLI) | payer BC ==
--- NOTE | 2023-07-28 15:08 | P.PN ---
Subjective Progress Note Date: 07/28/23 07-28-23 Principal diagnosis: 01-20-23 right breast recurrent breast abcesses Abscess right breast Subha is a 42-year-old female who was admitted from the emergency room on 01-12-23 with a complaint of erythema/possible cellulitis/possible abscess right breast. She states that the area of swelling started several days prior. She has had multiple breast abscesses in the past. She has had at least 5 abscesses in the left breast and this is her second abscess in the right breast. The patient in the past has been treated at [place]. She did have bilateral breast reduction approximately 10 years ago and there is some question as to whether the abscesses started following the reduction. She is uncertain as to what the organisms are however she has been told they were anaerobes. The patient received IV Zosyn and vancomycin at this time decreased erythema and discomfort in her right breast. She is now on doxycycline and ceftin. Is not complaining of any fever or chills. 12-13-22 bilateral mammogram at [facility]; left breast ultrasound on 12-22-22 mixed lesion measuring 5 x 4 mm without internal vascularity [place] to be BIRADS 3 follow-up bilateral diagnostic mammograms in 6 months secondary to: 1. Superficial calcifications along inferior aspect of the right breast 2. Vague nodular gritty posterior inferior left breast and 3. 12:00 left-sided 7 mm nodularity possibly debris-filled cyst on ultrasound Six-month follow-up targeted left breast ultrasound Right breast ultrasound performed 43134 1.8 cm hypoechoic area in the subcutaneous tissue corresponding to redness on the skin possible abscess felt to be BIRADS 3 screening mammogram of both breast in 1 year recommend 07-28-23 MRI bilateral breast 06-30-23 negative bilateral mammogram 07-22-23 BIRAD 0; left breast ultrasound on 07-22-23 BIRAD 2 She had a left breast abscess in February 2023, saw an ID specialist at [facility], she spent 1 night was discharged the abscess became worse and she was seen and admitted to [facility] where she was admitted for 10 days on IV antibiotics. She continues to be on antibiotics at this time. She is seeing Dr. Kishan Interiano at [place] [facility]. Not have any abscesses at this time. She is uncertian how long she will be on the antibiotic. She is presently on amoxicillin. She has been on this since February. Caffeine: Coffee every morning Nicotine: Negative Chocolate: Occasional controls: Stopped 6 years ago use them intermittently for 10 years prior Family history: Negative for cancer Hormonal history: Menarche: 15 G1 M1 Periods are regular she did have a right nephrectomy in the past Past surgical history: Right nephrectomy Cholecystectomy Past medical history: Breast abscesses Social history: Nicotine: Negative she is exposed to secondhand smoke Alcohol: Occasional Drugs: Negative - Constitutional Constitutional: Denies chills, Denies fever - EENT Eyes: denies blurred vision, denies pain Ears: deny: decreased hearing, tinnitus Ears, nose, mouth and throat: Denies headache, Denies sore throat - Breasts Breasts: bilateral: as per HPI - Cardiovascular Cardiovascular: Denies chest pain, Denies shortness of breath - Respiratory Respiratory: Denies cough - Gastrointestinal Gastrointestinal: Denies abdominal pain, Denies diarrhea, Denies nausea, Denies vomiting - Genitourinary (Female) Genitourinary: Denies dysuria, Denies hematuria - Menstruation Comment: Right oophrectomy Menstruation: Reports as per HPI - Genitourinary (Male) Genitourinary: Denies dysuria, Denies hematuria - Musculoskeletal Musculoskeletal: Denies myalgias - Integumentary Integumentary: Reports as per HPI - Psychiatric Psychiatric: Reports depression, Denies anxiety - Hematologic/Lymphatic Comment: none - Allergic/Immunologic Allergic/Immunologic: Reports as per HPI Past Medical History Past Medical History: No Reported History Additional Past Medical History / Comment(s): OVARIAN CYST History of Any Multi-Drug Resistant Organisms: None Reported Past Surgical History: Breast Surgery, Cholecystectomy Additional Past Surgical History / Comment(s): Breast reduction. LEEP Past Anesthesia/Blood Transfusion Reactions: No Reported Reaction Past Psychological History: No Psychological Hx Reported Smoking Status: Never smoker Past Alcohol Use History: Occasional Past Drug Use History: None Reported - Past Family History Mother Family Medical History: No Reported History Medications and Allergies Home Medications Medication Instructions Recorded Confirmed Type Indapamide [Lozol] 2.5 mg PO DAILY 01/12/23 01/12/23 History buPROPion HCL [buPROPion HCL XL] 300 mg PO DAILY 01/12/23 01/12/23 History Acetaminophen Tab [Tylenol] 500 mg PO Q6HR PRN tab 01/13/23 Rx Doxycycline [Vibramycin] 100 mg PO BID 1 Days #14 capsule 01/13/23 Rx cefUROXime axetiL [Ceftin] 500 mg PO BID #14 tab 01/13/23 Rx Allergies Allergy/AdvReac Type Severity Reaction Status Date / Time No Known Allergies Allergy Verified 01/12/23 17:08 Objective - Constitutional General appearance: Present: cooperative - EENT Eyes: Present: EOMI ENT: Present: hearing grossly normal - Neck Neck: Present: normal ROM - Respiratory Respiratory: bilateral: CTA - Cardiovascular Rhythm: regular Heart sounds: normal: S1, S2 - Integumentary Integumentary: Present: normal turgor - Musculoskeletal Musculoskeletal: Present: gait normal - Psychiatric Psychiatric: Present: A&O x's 3, appropriate affect, intact judgment & insight - Additional findings Additional findings: Breast examination: BRA: 38DD Inspection: Bilateral reduction mammoplasty incisions, no abscess on today's examination Palpation: Right breast: Multi-positional exam no dominant masses or nodules of concern Right axilla: No adenopathy of concern Left breast: Multi-positional exam no dominant masses or nodules of concern Left axilla: No adenopathy of concern Assessment and Plan Assessment: Impression: Recurrent breast abscesses/ resolved at this time BMI 41.8 Plan: Continue to follow with infectious disease doctor from [place] Patient to have bilateral mammogram in 1 year Follow-up in 6 months for examination Patient to follow-up sooner any questions or concerns Cc: Dr. Song, Ebony Matthew
[2023-07-28 15:43] VITALS: BP 134/98; PULSE 95; RESP 15; TEMP 98.2
== END ==
LOC: WWCWWP 14:41
PROVIDERS: ATTEND Surgery
DX: R92.8 Other abnormal and inconclusive findings on diagnostic imaging of breast (principal); R92.1 Mammographic calcification found on diagnostic imaging of breast; N61.1 Abscess of the breast and nipple; N63.25 Unspecified lump in the left breast, overlapping quadrants; L53.8 Other specified erythematous conditions; Z77.22 Contact with and (suspected) exposure to environmental tobacco smoke (acute) (chronic)

== ENCOUNTER → 2024-01-23 | Outpatient (CLI) | payer BC ==
[2024-01-23 11:24] LABS: Basophils # (A) 0.06 X 10*3/uL (0.00-0.10); Basophils % (A) 0.8 %; Eosinophils # (A) 0.11 X 10*3/uL (0.04-0.35); Eosinophils % (A) 1.6 %; HCT 44.5 % (37.2-46.3); HGB 14.6 g/dL (12.0-15.0); Lymphocytes # (A) 2.65 X 10*3/uL (0.90-5.00); Lymphocytes % (A) 37.5 %; MCH 29.1 pg (27.0-32.0); MCHC 32.8 g/dL (32.0-37.0); MCV 88.6 FL (80.0-97.0); Mean Platelet Volume 11.7 FL (9.5-12.2); Monocytes # (A) 0.65 X 10*3/uL (0.20-1.00); Monocytes % (A) 9.2 %; NRBC Per 100 WBC 0 X 10*3/uL (0.00-0.01); Neutrophils # (A) 3.58 X 10*3/uL (1.80-7.70); Neutrophils % (A) 50.8 %; Platelet Count 338 X 10*3/uL (140-440); RBC 5.02 X 10*6/uL (4.10-5.20); RDW 13.7 % (11.5-14.5); WBC 7.06 X 10*3/uL (4.50-10.00)
== END | disposition home or self-care (01) ==
LOC: LABWHC1 08:16
PROVIDERS: ATTEND Obstetrics & Gynecology
DX: Z01.812 Encounter for preprocedural laboratory examination (principal)
CPT/HCPCS: 36415; 85025

== ENCOUNTER 2024-01-30 06:09 | Day surgery (SDC) | payer BC ==
--- NOTE | 2024-01-29 12:47 | P.HPOB ---
History of Present Illness H&P Date: 01/29/24 Chief Complaint: pelvic pain, ovarian cyst 43 year old with left ovarian cyst. She has had pain for several months and history of a cyst on the right side that required surgical intervention and RSO. Recent USs show persistant left ovarian cyst. Review of Systems All systems: negative Constitutional: Denies chills, Denies fever Eyes: denies blurred vision, denies pain Ears, nose, mouth and throat: Denies headache, Denies sore throat Cardiovascular: Denies chest pain, Denies shortness of breath Respiratory: Denies cough Gastrointestinal: Denies abdominal pain, Denies diarrhea, Denies nausea, Denies vomiting Genitourinary: Denies dysuria, Denies hematuria Musculoskeletal: Denies myalgias Integumentary: Denies pruritus, Denies rash Neurological: Denies numbness, Denies weakness Psychiatric: Denies anxiety, Denies depression Endocrine: Denies fatigue, Denies weight change Past Medical History Past Medical History: No Reported History Additional Past Medical History / Comment(s): OVARIAN CYST History of Any Multi-Drug Resistant Organisms: None Reported Past Surgical History: Breast Surgery, Cholecystectomy Additional Past Surgical History / Comment(s): Breast reduction. LEEP, rt ovary removed Past Anesthesia/Blood Transfusion Reactions: No Reported Reaction Smoking Status: Never smoker - Past Family History Mother Family Medical History: No Reported History Medications and Allergies Home Medications Medication Instructions Recorded Confirmed Type HYDROcodone/APAP 10-325MG [[place] 1 tab PO BID PRN 01/24/24 01/24/24 History 10-325] Allergies Allergy/AdvReac Type Severity Reaction Status Date / Time No Known Allergies Allergy Verified 01/24/24 15:35 Exam Osteopathic Statement: *. No significant issues noted on an osteopathic structural exam other than those noted in the History and Physical/Consult. Heart: Regular rate and rhythm Lungs: Clear to auscultation bilaterally Abdomen: Soft, nontender Extremities: Negative Homans sign Assessment and Plan (1) Pelvic pain Status: Acute Code(s): R10.2 - PELVIC AND PERINEAL PAIN SNOMED Code(s): 42403186 (2) Ovarian cyst Status: Acute Code(s): N83.209 - UNSPECIFIED OVARIAN CYST, UNSPECIFIED SIDE SNOMED Code(s): 91503015 Plan: 1. robotic removal of left ovarian cyst with possible left oopherectomy
[2024-01-30] MEDS ORDERED: LIDOCAINE 1% (10MG/ML) FOR IV START INTRADERMA PRN (06:37)
[2024-01-30] MEDS ORDERED: MIDAZOLAM 2 MG/2 ML VIAL IV PRN (06:37)
[2024-01-30] MEDS ORDERED: fentaNYL (PF) 50 MCG/ML 2 ML AMP IVP PRN (06:37)
[2024-01-30] MEDS: LACTATED RINGERS 1,000 ML IV SCH (07:15)
[2024-01-30] MEDS: IV FLUID CONTINUATION 1,000 ML IV ONE ×2 (07:16→07:26)
[2024-01-30] MEDS: ONDANSETRON 4 MG/2 ML VIAL IVP ONE (07:20)
[2024-01-30] MEDS: DEXAMETHASONE SOD PHOSPHATE 4 MG/ML 1 ML VIAL IV ONE (07:21)
[2024-01-30] MEDS ORDERED: LIDOCAINE 1% INJ 10MG/ML (20 ML MDV) ONE (07:24)
[2024-01-30] MEDS ORDERED: GLYCOPYRROLATE 0.2 MG/ML 2 ML VIAL ONE (07:24)
[2024-01-30] MEDS ORDERED: fentaNYL (PF) 50 MCG/ML 2 ML AMP ONE (07:24)
[2024-01-30] MEDS ORDERED: MIDAZOLAM 2 MG/2 ML VIAL ONE (07:24)
[2024-01-30] MEDS ORDERED: NEOSTIGMINE 1 MG/ML 10 ML VIAL ONE (07:24)
[2024-01-30] MEDS ORDERED: SUCCINYLCHOLINE CHLORIDE 200 MG/10 ML VIAL IV ONE (07:24)
[2024-01-30] MEDS ORDERED: PROPOFOL 10 MG/ML 20 ML VIAL IV ONE (07:24)
[2024-01-30] MEDS ORDERED: KETOROLAC 15 MG/ML 1 ML VIAL ONE (07:24)
[2024-01-30] MEDS ORDERED: ROCURONIUM 10 MG/ML (5 ML VIAL) IV ONE (07:24)
[2024-01-30] MEDS: BUPIVACAINE (PF) 0.25% 30 ML VIAL SQ ONE (08:20)
[2024-01-30] MEDS: LACTATED RINGERS 1,000 ML IV ONE (08:20)
[2024-01-30 08:43] VITALS: TEMP 97.6
[2024-01-30] MEDS: HYDROmorphone 0.5 MG/0.5 ML SYRINGE IVP PRN (08:52)
[2024-01-30 10:01] VITALS: RESP 18
--- NOTE | 2024-01-30 10:01 | P.OP ---
Date of Procedure: 01/30/24 Preoperative Diagnosis: 1. pelvic pain 2. left ovarian cyst Postoperative Diagnosis: 1. pelvic pain 2. left ovarian cyst 3. left hydrosalpinx Procedure(s) Performed: Robotic-assisted laparoscopic removal of left ovarian cyst and the left fallopian tube with cauterization of endometriosis. Anesthesia: GETA Surgeon: Verónica Oakley Estimated Blood Loss (ml): 10 IV fluids (ml): 300 Urine output (ml): 150 Pathology: other (left ovarian cyst, piece of left ovary and left fallopian tube) Condition: stable Disposition: PACU Operative Findings: normal uterus, small amount of endometriosis, mucinoid left ovarian cyst, left hydrosalpinx, normal right fallopian tube Description of Procedure: Patient taken the operating room where general anesthesia was obtained without difficulty. She is prepped and draped in normal sterile fashion dorsal lithotomy position, legs placed in the Murali stirrups. Weighted speculum placed in the vagina and the anterior lip the cervix was grasped with single-tooth tenaculum. The uterus sounded to 8 cm and the kroner manipulator placed.. other was drained of all urine. Attention was then turned to the abdomen and gloves were changed. A 5 mm supraumbilical incision was made the scalpel and a 5 mm optical trocar was placed under direct visualization. 10 cm to the right of this and 2 cm down a 5 mm incision was made and 8 mm da Howard port was placed under direct visualization. Same measurements on the opposite side of the patient's abdomen, the 5 mm incision was made and 8 mm da Howard port was placed under direct visualization. In the left upper quadrant a 10 mm incision was made and a 10 mm optical trocar was placed under direct visualization. The 5 mm optical trocar was then replaced with the 8 mm da Howard camera port. The robot was docked on patient's right side. The camera was introduced and then the monopolar curved scissor and vessel sealer placed under direct visualization. I broke scrub and went to the physician console. survey of the pelvis revealed a very small piece of endometriosis anterior to cervix near the bladder that was cauterized. The right fallopian tube was perfectly normal, the right ovary is missing as per her surgical history. The left ovary had a small cyst in the left fallopian tube showed hydrosalpinx up to the midportion of the fallopian tube from the distal end. The left ovarian cyst was incised with the Metzenbaum scissors the cyst was easily removed piece of the left ovary along with the cyst were sent to pathology. Areas of the left ovary were then cauterized for hemostasis. The left mesosalpinx was then cauterized with the [place] bipolar and cut with the monopolar curved scissors to remove the left fallopian tube. Hemostasis was again assured and the pelvis was irrigated. All instruments were removed from the abdomen and the robot was undocked. I scrubbed back in to perform a cystoscopy. There were jets from both ureteral orifices. The abdominal incisions were closed with 4-0 Vicryl in a subcuticular fashion. Patient tolerated the procedure well, sponge and instrument counts correct 2 and she was taken to recovery room in stable condition condition
[2024-01-30 10:15] VITALS: BP 128/83; PULSE 88
== END 2024-01-30 11:03 | disposition home or self-care (01) ==
LOC: OR 06:09
PROVIDERS: ATTEND Obstetrics & Gynecology
DX: N83.02 Follicular cyst of left ovary (principal); N70.11 Chronic salpingitis; E66.9 Obesity, unspecified; Z90.49 Acquired absence of other specified parts of digestive tract; Z90.721 Acquired absence of ovaries, unilateral; Z79.899 Other long term (current) drug therapy
CPT/HCPCS: 58661; 58662; 81025; 88305; S2900

== ENCOUNTER 2024-02-11 12:45 | Emergency (ER) | payer BC ==
[2024-02-11 13:05] VITALS: BP 154/106; PULSE 92; RESP 18; TEMP 98.2
--- NOTE | 2024-02-11 13:22 | ED ---
Skin/Abscess/FB HPI - General Chief complaint: Skin/Abscess/Foreign Body Stated complaint: Skin Abscess L Breast Time Seen by Provider: 02/11/24 13:20 Source: patient, RN notes reviewed Mode of arrival: ambulatory Limitations: no limitations - History of Present Illness Initial comments: 43-year-old female presenting to the ER with a chief complaint of left breast pain. Patient states she has a history of left breast abscess and has had I&D and has also been hospitalized for IV antibiotics due to this. Last time she was admitted was in July at [facility]. Patient is following up with Dr. Kallie Baker. She states last night she noticed pea-sized area inferior to left nipple that was extremely tender to touch. She states this morning upon waking area increased in size. She states the pain is 10 out of 10. She denies any drainage or nipple discharge. No known injuries or traumas. She states this abscess is in the same area as prior. No fevers, chills, night sweats or other complaints. - Related Data Home Medications Medication Instructions Recorded Confirmed HYDROcodone/APAP 10-325MG [[place] 1 tab PO BID PRN 01/24/24 01/30/24 10-325] Previous Rx's Medication Instructions Recorded Cephalexin [Keflex] 500 mg PO Q6HR #40 cap 02/11/24 Allergies Allergy/AdvReac Type Severity Reaction Status Date / Time No Known Allergies Allergy Verified 02/11/24 13:05 Review of Systems ROS Statement: Those systems with pertinent positive or pertinent negative responses have been documented in the HPI. ROS Other: All systems not noted in ROS Statement are negative. Past Medical History Past Medical History: No Reported History Additional Past Medical History / Comment(s): OVARIAN CYST History of Any Multi-Drug Resistant Organisms: None Reported Past Surgical History: Breast Surgery, Cholecystectomy Additional Past Surgical History / Comment(s): Breast reduction. LEEP, left fallopian tube removal, cyst removal, Past Anesthesia/Blood Transfusion Reactions: No Reported Reaction Past Psychological History: No Psychological Hx Reported Smoking Status: Never smoker Past Alcohol Use History: Rare Past Drug Use History: Marijuana - Past Family History Mother Family Medical History: No Reported History General Exam Limitations: no limitations General appearance: alert, in no apparent distress Respiratory exam: Present: normal lung sounds bilaterally. Absent: respiratory distress, wheezes, rales, rhonchi, stridor Cardiovascular Exam: Present: regular rate, normal rhythm, normal heart sounds. Absent: systolic murmur, diastolic murmur, rubs, gallop, clicks Neurological exam: Present: alert, oriented X3, CN II-XII intact Skin exam: Present: other (There is a 2 x 2 cm indurated area to left breast about 6 o'clock position. Area is mildly erythematous and tender to touch. No nipple discharge.) Course Vital Signs 02/11/24 13:00 Temperature 98.2 F Pulse Rate 92 Respiratory 18 Rate Blood Pressure 154/106 O2 Sat by Pulse 100 Oximetry Medical Decision Making - Medical Decision Making Was pt. sent in by a medical professional or institution (, PA, STRUCTURES MECHANIC, urgent care, hospital, or [facility]...) When possible be specific @ -No Did you speak to anyone other than the patient for history (EMS, parent, family, police, friend...)? What history was obtained from this source @ -No Did you review nursing and triage notes (agree or disagree)? Why? @ -I reviewed and agree with nursing and triage notes Were old charts reviewed (outside hosp., previous admission, EMS record, old EKG, old radiological studies, urgent care reports/EKG's, ch[facility] records)? Report findings @ -No old charts were reviewed Differential Diagnosis (chest pain, altered mental status, abdominal pain women, abdominal pain men, vaginal bleeding, weakness, fever, dyspnea, syncope, headache, dizziness, GI bleed, back pain, seizure, CVA, palpatations, mental health, musculoskeletal)? @ -Mastitis, abscess, cyst, malignancy... This list is not meant to be all- inclusive EKG interpreted by me (3pts min.). @ -None done X-rays interpreted by me (1pt min.). @ -None done CT interpreted by me (1pt min.). @ -None done U/S interpreted by me (1pt. min.). @ -Left breast ultrasound showing an inflamed sebaceous cyst or possible early abscess. Measuring 2.7 cm at the 6 o'clock position. What testing was considered but not performed or refused? (CT, X-rays, U/S, labs)? Why? @ -None What meds were considered but not given or refused? Why? @ -None Did you discuss the management of the patient with other professionals (professionals i.e. DrRekha, PA, STRUCTURES MECHANIC, lab, RT, psych nurse, manager social responsibility, councilman, teacher, deputy probation officer, case finisher)? Give summary @ -No Was smoking cessation discussed for >3mins.? @ -No Was critical care preformed (if so, how long)? @ -No Were there social determinants of health that impacted care today? How? (Homelessness, low income, unemployed, alcoholism, drug addiction, transportation, low edu. Level, literacy, decrease access to med. care, long term, rehab)? @ -No Was there de-escalation of care discussed even if they declined (Discuss DNR or withdrawal of care, Hospice)? DNR status @ -No What co-morbidities impacted this encounter? (DM, HTN, Smoking, COPD, CAD, Cancer, CVA, ARF, Chemo, Hep., AIDS, mental health diagnosis, sleep apnea, morbid obesity)? @ -None Was patient admitted / discharged? Hospital course, mention meds given and route, prescriptions, significant lab abnormalities, going to OR and other pertinent info. @ -Discharged. 43 year old female presenting to the ER with a chief complaint of left breast pain. History physical exam completed. Vitals within normal limits. Exam remarkable for a 2 x 2 tender area to left breast 6 o'clock position. No overlying erythema or drainage. Ultrasound obtained showing a 2.7 cm possible early abscess versus inflamed sebaceous cyst. Ultrasound and mammogram recommended within 1 month. Patient received p.o. ibuprofen for pain control in the ER. Upon reevaluation, patient resting comfortably in exam room no signs of acute distress. Results discussed with patient, all questions answered. Patient will be started on Keflex for infection prophylaxis as abscess cannot be ruled out. I also advised warm compresses and massage. Instructed patient to follow-up with Dr. Brennen Agarwal on 02/13/24. Strict return parameters discussed. Patient discharged in stable condition with follow-up to Dr. Brennen Baker. Patient verbally expressed understanding and agreement with care plan. Case discussed with ED attending, . Undiagnosed new problem with uncertain prognosis? @ -No Drug Therapy requiring intensive monitoring for toxicity (Heparin, Nitro, Insulin, Cardizem)? @ -No Were any procedures done? @ -No Diagnosis/symptom? @ -Breast abscess versus inflamed sebaceous cyst Acute, or Chronic, or Acute on Chronic? @ -Acute Uncomplicated (without systemic symptoms) or Complicated (systemic symptoms)? @ -Uncomplicated Side effects of treatment? @ -No Exacerbation, Progression, or Severe Exacerbation? @ -No Poses a threat to life or bodily function? How? (Chest pain, [place], SC, pneumonia, PE, COPD, DKA, ARF, appy, cholecystitis, CVA, Diverticulitis, Homicidal, Suicidal, threat to staff... and all critical care pts) @ -No - Radiology Data Radiology results: image reviewed (report called to me by satellite installation technician) Disposition Clinical Impression: Breast pain, left Disposition: HOME SELF-CARE Condition: Stable Additional Instructions: I recommend warm compresses, OTC ibuprofen and tylenol for pain control. Complete full course of Keflex. Follow-up with Dr. Kern 02/13/24. Return to the ER for any new or worsening concerns. Prescriptions: Cephalexin [Keflex] 500 mg PO Q6HR #40 cap Is patient prescribed a controlled substance at d/c from ED?: No Referrals: Winston Peterson MD [Primary Care Provider] - 1-2 days Suzy Kern MD [STAFF PHYSICIAN] - 1-2 days Time of Disposition: 15:57
[2024-02-11] MEDS: IBUPROFEN 600 MG TAB PO STA (13:34)
[2024-02-11] MEDS: traMADol 50 MG STARTER PACK 3 TAB BTL PO STA (16:39)
[2024-02-11] MEDS: CEPHALEXIN 500MG STARTER PACK 4 CAP BTL PO STA (16:45)
--- NOTE | 2024-02-14 12:33 | USB ---
Reason for Exam: Clinical finding. Patient History: Menarche at age 15. Patient has no children. Right ovary removed at age 40. 2013, Bilateral Reduction. 2022, US biopsy breast VAD LT - 2 on the Left side. Risk Values: Diana 5 year model risk: 1.1%. NCI Lifetime model risk: 13.4%. Prior Study Comparison: 07/22/2023 Bilateral MG 3D diag mammo w/cad [facility], [facility]. Findings: A complete US of all four quadrants of the breast, axilla, and retro-areolar region were reviewed. . At area of concern left breast 6:00, 7 cm from the nipple, there is a heterogeneous hypoechoic area just deep to the skin surface measuring 2.7 x 2.3 x 1.2 cm weight surrounding hyperemia and overlying focal skin thickening. No other solid or cystic lesion or axillary lymphadenopathy. Overall Assessment: Probably benign, BI-RAD 3 Management: Diagnostic Breast Ultrasound of the left breast in 1 month. Clinical Management of the left breast. Possible inflamed sebaceous cyst or early abscess measuring 2.7 cm just deep to the skin surface symptomatic 6:00 site 7 cm from the nipple. Further clinical correlation recommended. Ultrasound in one month to ensure clearance. A diagnostic left breast mammogram can also be performed at that time to ensure that the breast remains clear. Results were given to the patient verbally at the time of exam. [facility], , 02/11/2024 3:05 PM . Electronically signed and approved by: Bassem Hitchcock M.D. Radiologist
== END 2024-02-11 16:50 | disposition home or self-care (01) ==
LOC: EC 12:45
DX: N64.4 Mastodynia (principal)
CPT/HCPCS: 99283

== ENCOUNTER → 2024-06-21 | Outpatient (CLI) | payer BC, OTHER ==
--- NOTE | 2024-06-22 05:51 | US ---
EXAMINATION TYPE: US pelvis complete transvag DATE OF EXAM: 06/21/2024 COMPARISON: CT 2022, US 2021 CLINICAL INDICATION: Female, 43 years old with history of R10.30 LOWER ABDOMINAL PAIN, UNSPECIFIED; L ower abdominal pain per order. Hx right ovary removed 2021. Left fallopian tube removed due to fluid within in 2023 per pt, hx ovarian cyst. G0 TECHNIQUE: Transvaginal (TV) and Transabdominal (TA) . Transabdominal grayscale sonographic images of the pelvis were acquired. Transvaginal sonographic im ages were medically necessary to better assess the following anatomy: Endo, ovaries Doppler imaging: Not performed. FINDINGS: Date of LMP: 05/28/2024 EXAM MEASUREMENTS: Uterus: 7.4 x 4.4 x 4.2 cm Endometrial Stripe: 0.87 cm Right Ovary: Not seen Left Ovary: 4.4 x 2.1 x 2.4 cm 1. Uterus: Anteverted. Heterogeneous. *Complex area in cervix: 1.2 x 1.3 x 1.1 cm. Subcentimeter anechoic area seen mid uterus. 2. Endometrium: Measures 0.87 cm. 3. Right Ovary: Not seen 4. Left Ovary: *Anechoic area seen: 2.7 x 1.8 x 1.9 cm. 5. Bilateral Adnexa: *Fluid seen in left adnexa 6. Posterior cul-de-sac: Appears wnl Heterogeneous anteverted uterus. There is 1.2 cm thin-walled cyst in the cervix with internal echoes likely reflecting debris filled nabothian cyst. Free fluid in the left adnexa is present. Left ovary has 2.7 x 1.9 x 1.8 cm simple appearing thin-walled cyst. Right ovary is surgically absent . IMPRESSION: Incidental 2.7 cm thin-walled cyst in the left ovary with tiny amount of adjacent free fl uid in the left pelvis which is nonspecific finding. [facility], , 06/22/2024 5:49 AM
== END | disposition home or self-care (01) ==
LOC: RADUSWWP 15:04
PROVIDERS: ATTEND Student in an Organized Health Care Education/Training Program
DX: R10.30 Lower abdominal pain, unspecified (principal); Z90.721 Acquired absence of ovaries, unilateral
CPT/HCPCS: 76830; 76856

== ENCOUNTER 2024-09-26 13:48 | Emergency (ER) | payer OTHER ==
[2024-09-26 14:21] LABS: Basophils # (A) 0.07 10*3/uL (0.00-0.10); Eosinophils % (A) 4.2 %; HCT 42.3 % (37.2-46.3); HGB 14.5 g/dL (12.0-15.0); Lymphocytes # (A) 2.55 10*3/uL (0.90-5.00); Lymphocytes % (A) 35.6 %; MCH 29.2 pg (27.0-32.0); MCHC 34.3 g/dL (32.0-37.0); MCV 85.3 fL (80.0-97.0); Mean Platelet Volume 10.9 fL (9.5-12.2); Monocytes # (A) 0.72 10*3/uL (0.20-1.00); Neutrophils # (A) 3.52 10*3/uL (1.80-7.70); Neutrophils % (A) 49.1 %; Platelet Count 310 10*3/uL (140-440); RBC 4.96 10*6/uL (4.10-5.20); RDW 13.8 % (11.5-14.5); WBC 7.17 10*3/uL (4.50-10.00)
[2024-09-26 14:35] LABS: INR 0.9 (<1.2); Partial Thromboplastin Time 22.4 sec (22.0-30.0); Prothrombin Time 10.4 sec (10.0-12.5)
[2024-09-26 14:36] LABS: ALT 40 U/L (4-34); AST 37 U/L (14-36); African American GFR (CKD) 90 (>60 ml/min/1.73 sqM); Albumin 4.1 g/dL (3.5-5.0); Alkaline Phosphatase 87 U/L (38-126); Anion Gap 8 mmol/L; Blood Urea Nitrogen 11 mg/dL (7-17); Carbon Dioxide 27 mmol/L (22-30); Chloride 103 mmol/L (98-107); Glucose 94 mg/dL (74-99); Non-African American GFR(CKD) 78 (>60 ml/min/1.73 sqM); Potassium 4.3 mmol/L (3.5-5.1); Sodium 138 mmol/L (137-145); Total Bilirubin 0.5 mg/dL (0.2-1.3)
[2024-09-26 14:46] LABS: NT-Pro-B-Type Natriuretic Pept 57 pg/mL
--- NOTE | 2024-09-26 14:54 | XR ---
EXAMINATION TYPE: XR chest 2V DATE OF EXAM: 09/26/2024 2:44 PM COMPARISON: None. CLINICAL INDICATION: Female, 43 years old with history of Chest Pain, TECHNIQUE: XR chest 2V view(s) obtained. FINDINGS: The heart size is normal. The pulmonary vasculature is normal. The lungs are clear. IMPRESSION: 1. No acute pulmonary process. [facility], , 09/26/2024 2:51 PM
--- NOTE | 2024-09-26 15:31 | ED ---
Chest Pain HPI - General Source: patient, RN notes reviewed Mode of arrival: ambulatory Limitations: no limitations <Presley Lindsey - Last Filed: 09/26/24 15:30> <Sierra Morris - Last Filed: 09/26/24 19:11> - General Chief Complaint: Chest Pain Stated Complaint: Abn EKG Time Seen by Provider: 09/26/24 14:01 - History of Present Illness Initial Comments: Quick note 43-year-old female presents emerged from chief complaint abnormal EKG. Patient states she been having some on and off right-sided chest discomfort. Patient states she also noticed that she is having leg swelling. Patient saw PCP who performed an EKG and told there was abnormal because it said " low voltage". Patient states she has no prior cardiac history. Patient states that she has been having abdominal issues pelvic issues and this is the reason they performed EKG as she has had a workup for that and they could not find any other causes. (Presley Lindsey) - Related Data Home Medications Medication Instructions Recorded Confirmed HYDROcodone/APAP 10-325MG [[place] 1 tab PO BID PRN 01/24/24 01/30/24 10-325] Previous Rx's Medication Instructions Recorded Cephalexin [Keflex] 500 mg PO Q6HR #40 cap 02/11/24 Allergies Allergy/AdvReac Type Severity Reaction Status Date / Time No Known Allergies Allergy Verified 02/11/24 13:05 Review of Systems ROS Other: All systems not noted in ROS Statement are negative. <Presley Lindsey - Last Filed: 09/26/24 15:30> ROS Other: All systems not noted in ROS Statement are negative. <Sierra Morris - Last Filed: 09/26/24 19:11> ROS Statement: Those systems with pertinent positive or pertinent negative responses have been documented in the HPI. Past Medical History Past Medical History: No Reported History Additional Past Medical History / Comment(s): OVARIAN CYST, kidney stones umblical hernia History of Any Multi-Drug Resistant Organisms: None Reported Past Surgical History: Breast Surgery, Cholecystectomy Additional Past Surgical History / Comment(s): Breast reduction. LEEP, left fallopian tube removal, cyst removal, Past Anesthesia/Blood Transfusion Reactions: No Reported Reaction Past Psychological History: No Psychological Hx Reported Smoking Status: Never smoker Past Alcohol Use History: Rare Past Drug Use History: Marijuana - Past Family History Mother Family Medical History: No Reported History <Presley Lindsey - Last Filed: 09/26/24 15:30> General Exam Limitations: no limitations <Presley Lindsey - Last Filed: 09/26/24 15:30> - General Exam Comments Initial Comments: Visual Physical Exam Vital signs reviewed General: Well-appearing, nontoxic, no acute distress. Head: Normocephalic, atraumatic Eyes: PERRLA, EOMI ENT: Airway patent Chest: Nonlabored breathing Skin: No visual rash, normal skin tone Neuro: Alert and oriented 3 Musculoskeletal: No gross abnormalities (Presley Lindsey) Course Vital Signs 09/26/24 09/26/24 09/26/24 13:59 17:00 18:00 Temperature 97.7 F Pulse Rate 70 76 90 Respiratory 16 18 18 Rate Blood Pressure 167/100 152/101 139/95 O2 Sat by Pulse 98 99 97 Oximetry Chest Pain MDM <Presley Lindsey - Last Filed: 09/26/24 15:30> <Sierra Morris - Last Filed: 09/26/24 19:11> - MDM I completed the quick note portion of this chart signed Presley Lindsey PA-C (Presley Lindsey) Was pt. sent in by a medical professional or institution ([facility], HYBRID TECHNOLOGIST, urgent care, hospital, or assisted...) When possible be specific @ -[No] Did you speak to anyone other than the patient for history (EMS, parent, family, police, friend...)? What history was obtained from this source @ -[No] Did you review nursing and triage notes (agree or disagree)? Why? @ -[I reviewed and agree with nursing and triage notes] Were old charts reviewed (outside hosp., previous admission, EMS record, old EKG, old radiological studies, urgent care reports/EKG's, assisted records)? Report findings @ -[No old charts were reviewed] Differential Diagnosis (chest pain, altered mental status, abdominal pain women, abdominal pain men, vaginal bleeding, weakness, fever, dyspnea, syncope, headache, dizziness, GI bleed, back pain, seizure, CVA, palpatations, mental health, musculoskeletal)? @ -[not applicable] EKG interpreted by me (3pts min.). @ -Yes and demonstrates sinus rhythm with a rate of 81. LA interval 149. QRS 78. QTc of 391. No acute ST segment elevations or depressions. Some low voltage in anterior leads X-rays interpreted by me (1pt min.). @ -[None done] CT interpreted by me (1pt min.). @ -[None done] U/S interpreted by me (1pt. min.). @ -[None done] What testing was considered but not performed or refused? (CT, X-rays, U/S, labs)? Why? @ -[None] What meds were considered but not given or refused? Why? @ -[None] Did you discuss the management of the patient with other professionals (professionals i.e. , PA, HYBRID TECHNOLOGIST, lab, RT, psych nurse, social media intern, utilization review rn, teacher, executive vice president and chief operating officer, special education case manager)? Give summary @ -[No] Was smoking cessation discussed for >3mins.? @ -[No] Was critical care preformed (if so, how long)? @ -[No] Were there social determinants of health that impacted care today? How? (Homelessness, low income, unemployed, alcoholism, drug addiction, transportation, low edu. Level, literacy, decrease access to med. care, [place] [facility], rehab)? @ -[No] Was there de-escalation of care discussed even if they declined (Discuss DNR or withdrawal of care, Hospice)? DNR status @ -[No] What co-morbidities impacted this encounter? (DM, HTN, Smoking, COPD, CAD, Cancer, CVA, ARF, Chemo, Hep., AIDS, mental health diagnosis, sleep apnea, morbid obesity)? @ -[None] Was patient admitted / discharged? Hospital course, mention meds given and route, prescriptions, significant lab abnormalities, going to OR and other pertinent info. @ -[hospital course] Undiagnosed new problem with uncertain prognosis? @ -[No] Drug Therapy requiring intensive monitoring for toxicity (Heparin, Nitro, Insulin, Cardizem)? @ -[No] Were any procedures done? @ -[No] Diagnosis/symptom? @ -[default] Acute, or Chronic, or Acute on Chronic? @ -[default] Uncomplicated (without systemic symptoms) or Complicated (systemic symptoms)? @ -[default] Side effects of treatment? @ -[No] Exacerbation, Progression, or Severe Exacerbation? @ -[No] Poses a threat to life or bodily function? How? (Chest pain, [place], ID, pneumonia, PE, COPD, DKA, ARF, appy, cholecystitis, CVA, Diverticulitis, Homicidal, Suicidal, threat to staff... and all critical care pts) @ -[No] (Sierra Morris) Disposition <Presley Lindsey - Last Filed: 09/26/24 15:30> Is patient prescribed a controlled substance at d/c from ED?: No Time of Disposition: 19:11 <Sierra Morris - Last Filed: 09/26/24 19:11> Clinical Impression: Chest pain Disposition: HOME SELF-CARE Condition: Stable Instructions (If sedation given, give patient instructions): Chest Pain (ED) Additional Instructions: Your labs are within normal limits today. I recommend a stress test to look into your symptoms further. Return for any new or worsening symptoms Referrals: Winston Peterson MD [Primary Care Provider] - 1-2 days
[2024-09-26 17:36] VITALS: RESP 18
--- NOTE | 2024-09-26 18:39 | CT ---
EXAMINATION TYPE: CT chest angio for PE CT DLP: 703.2 mGycm, Automated exposure control for dose reduction was used. DATE OF EXAM: 09/26/2024 6:26 PM COMPARISON: Chest radiograph from same day. CLINICAL INDICATION:Female, 43 years old with history of leg swelling, pleuritic chest pain; Chest pa in TECHNIQUE/CONTRAST: CTA scan of the thorax is performed with IV Contrast, patient injected with 100 ml mL of Isovue 370, MIP images are created and reviewed these are created on a separate workstation.. FINDINGS: Pulmonary Artery: There is no evidence for a filling defect within the pulmonary vasculature to sugge st acute pulmonary embolism. The pulmonary artery is of normal size. Lungs/Pleura: No evidence of focal consolidation, pleural effusion or pneumothorax. Airway: Large airways are patent. Heart: Heart is within normal limits for size. No pericardial effusion Vasculature: No evidence of aortic aneurysm. Mediastinum: No gross evidence of adenopathy. Calcified lymph node is seen in the left hilar region. Musculoskeletal: No acute osseous abnormalities Soft Tissues/lymph nodes: Unremarkable. Lower neck: No significant findings. Upper Abdomen: Cholecystectomy changes. There is a nonobstructive 3 mm right renal calculus. IMPRESSION: No evidence of pulmonary embolism. No acute intrathoracic process. [facility], , 09/26/2024 6:37 PM
[2024-09-26 19:30] VITALS: BP 137/89; PULSE 74; TEMP 98.2
== END 2024-09-26 19:35 | disposition home or self-care (01) ==
LOC: EC 13:48
DX: R07.89 Other chest pain (principal)
CPT/HCPCS: 36415; 93005; 85379; 83880; 80053; 83735; 84484; 85025; 85610; 85730; 71046; 71275; 99285; Q9967